=== PATIENT | female | born 1995 | race Caucasian/White ===

== ENCOUNTER 2017-01-31 02:22 | Outpatient (CLI) | payer SELFPAY | END 2017-01-31 02:27 | disposition other institution (70) | LOC: MW.OBCHECK 02:22 | PROVIDERS: ATTEND Obstetrics & Gynecology ==

== ENCOUNTER 2017-01-31 02:28 | Emergency (ER) | payer SELFPAY | END 2017-01-31 02:35 | disposition left against medical advice (07) | LOC: MW.ED 02:28 ==

== ENCOUNTER 2017-03-25 07:45 | Inpatient (IN) | payer SELFPAY ==
[2017-03-25] MEDS ORDERED: Misoprostol 200 MCG Tab PO PRN (08:14)
[2017-03-25] MEDS ORDERED: Nalbuphine 10 MG/1 ML Vial IVPUSH PRN (08:14)
[2017-03-25] MEDS ORDERED: Water For Irrigation,Sterile 1,000 ML Container IRR PRN (08:14)
[2017-03-25] MEDS ORDERED: Carboprost Tromethamine 250 MCG/1 ML Amp IM PRN (08:14)
[2017-03-25] MEDS ORDERED: Methylergonovine 0.2 MG/1 ML Amp IM PRN (08:14)
[2017-03-25] MEDS ORDERED: Sodium Chloride 0.9% 2.5 ML Syringe FLUSH PRN (08:14)
[2017-03-25] MEDS ORDERED: Lidocaine 1% 50 ML MDV INJECT PRN (08:14)
[2017-03-25] MEDS ORDERED: Butorphanol 1 MG/ML SDV IVPUSH PRN (08:14)
[2017-03-25] MEDS ORDERED: Sodium Chloride 0.9% 10 ML Syringe FLUSH PRN (08:14)
[2017-03-25] MEDS ORDERED: Oxytocin/Lactated Ringers 30 UNIT/500 ML BAG IV SCH (08:15)
[2017-03-25] MEDS: Lactated Ringers 1,000 ML IV SCH ×3 (08:19→09:57)
[2017-03-25] MEDS ORDERED: Ampicillin 2 GM in Sodium Chloride 0.9% 100 ML IV ONE (08:38)
[2017-03-25] MEDS ORDERED: fentaNYL 100 MCG/2 ML SDV ONE (08:51)
[2017-03-25] MEDS ORDERED: Ropivacaine HCl/PF 100 ML ONE (08:52)
--- NOTE | 2017-03-25 09:54 | PCM.LDHP ---
L&D History of Present Illness - General Date of Service: 03/25/17 Admit Problem/Dx: Patient Status Order with Admit Dx/Problem 03/25/17 08:14 Patient Status [ADT] Routine Admission Diagnosis/Problem Admission Diagnosis/Problem Source of Information: Patient History Limitations: Reports: No limitations - History of Present Illness Improves with: Reports: None Worsens with: Reports: None Associated Symptoms: Reports: N - Related Data Allergies/Adverse Reactions: Allergies Allergy/AdvReac Type Severity Reaction Status Date / Time tramadol Allergy Rash Verified 03/25/17 07:59 Home Medications: Home Meds Multivitamin [Daily Vitamin] 1 tab PO DAILY 05/31/15 [History] Past Medical History - Past Health History Medical/Surgical History: Denies 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: , Other (see below) Other OB/BYN History: hemmorrhage - Infectious Disease History Infectious Disease History: Reports: Chicken pox - Past Surgical History Female Surgical History: Reports: D&C Social & Family History - Family History Family Medical History: Noncontributory Other Cardiac Family History: cardiovascular disease OBGYN: Reports: - Tobacco Use Smoking Status *Q: Current Some Day Smoker Years of Tobacco use: 10 Packs/Tins Daily: 0.5 Used Tobacco, but Quit: Yes Month Tobacco Last Used: 3 weeks ago Second Hand Smoke Exposure: No - Alcohol Use Days Per Week of Alcohol Use: 0 - Recreational Drug Use Recreational Drug Use: No Recreational Drug Type: Reports: Marijuana/Hashish (Prior to ) H&P Review of Systems - Review of Systems: Review Of Systems: See Below General: Reports: no symptoms HEENT: Reports: no symptoms Pulmonary: Reports: No Symptoms Cardiovascular: Reports: no symptoms Gastrointestinal: Reports: No symptoms Genitourinary: Reports: no symptoms Musculoskeletal: Reports: no symptoms Skin: Reports: no symptoms Psychiatric: Reports: no symptoms Neurological: Reports: No Symptoms Hematologic/Lymphatic: Reports: no symptoms Immunologic: Reports: no symptoms L&D Exam - Exam Exam: See Below - Vital Signs Weight: 78.925 kg - OB Specific Fundal Height in cm: 38 Contraction Intensity: Moderate to Strong movement: active heart tones: present Heart Rate (FHR) Variability: Moderate (6-25 bmp) Presentation: Vertex - Thompson Score Thompson Score Consistency: Soft Thompson Score Effacement: >80% Thompson Score Dilation: > 5 cm - Patient Data Lab Results last 24 hrs: Laboratory Results - last 24 hr 03/25/17 Range/Units 08:30 WBC 12.81 H (4.0-11.0) K/uL RBC 3.25 L (4.30-5.90) M/uL Hgb 10.1 L (12.0-16.0) g/dL Hct 31.3 L (36.0-46.0) % MCV 96.3 (80.0-98.0) fL MCH 31.1 (27.0-32.0) pg MCHC 32.3 (31.0-37.0) g/dL RDW Std Deviation 51.3 (28.0-62.0) fl RDW Coeff of Emily 15 (11.0-15.0) % Plt Count 226 (150-400) K/uL MPV 10.80 (7.40-12.00) fL Nucleated RBC % 0.0 /100WBC Nucleated RBCs # 0 K/uL Result Diagrams: 03/25/17 08:30 Problem List Initiated/Reviewed/Updated: Yes Orders Last 24hrs: Active Orders 24 hr Category Date Time Status Patient Status [ADT] Routine ADT 03/25/17 08:14 Active Heart Tones [RC] CONTINUOUS Care 03/25/17 08:14 Active Non Stress Test [RC] PER UNIT ROUTINE Care 03/25/17 08:14 Active May Shower [RC] ASDIRECTED Care 03/25/17 08:14 Active Notify Provider [RC] PRN Care 03/25/17 08:14 Active Up ad Maria Guadalupe [RC] ASDIRECTED Care 03/25/17 08:14 Active Vaginal Exam [RC] PRN Care 03/25/17 08:14 Active Vital Signs [RC] PER UNIT ROUTINE Care 03/25/17 08:14 Active TYPE AND SCREEN [BBK] Routine Lab 03/25/17 08:30 Received Butorphanol [Stadol] Med 03/25/17 08:14 Active 1 mg IVPUSH Q1H PRN Carboprost Tromethamine [Hemabate DS] Med 03/25/17 08:14 Active 250 mcg IM ASDIRECTED PRN Lactated Ringers [Ringers, Lactated] 1,000 ml Med 03/25/17 08:15 Active IV ASDIRECTED Lidocaine 1% [Xylocaine 1%] Med 03/25/17 08:14 Active 50 ml INJECT .ONCE PRN Methylergonovine [Methergine] Med 03/25/17 08:14 Active 0.2 mg IM ASDIRECTED PRN Misoprostol [Cytotec] Med 03/25/17 08:14 Active 200 mcg PO .ONCE PRN Nalbuphine [Nubain] Med 03/25/17 08:14 Active 10 mg IVPUSH Q1H PRN Oxytocin/Lactated Ringers [Pitocin in LR 30 Units/500 Med 03/25/17 08:15 Active ML] 30 unit in 500 ml IV TITRATE Sodium Chloride 0.9% [Saline Flush] Med 03/25/17 08:14 Active 10 ml FLUSH ASDIRECTED PRN Sodium Chloride 0.9% [Saline Flush] Med 03/25/17 08:14 Active 2.5 ml FLUSH ASDIRECTED PRN Water For Irrigation,Sterile [Sterile Water for Med 03/25/17 08:14 Active Irrigation] 1,000 ml IRR ASDIRECTED PRN Scalp Electrode [WOMSER] Per Unit Routine Oth 03/25/17 08:14 Ordered Peripheral IV Insertion Adult [OM.PC] Routine Oth 03/25/17 08:14 Ordered Resuscitation Status Routine Resus Stat 03/25/17 08:14 Ordered Medication Orders Butorphanol Tartrate (Stadol) 1 mg IVPUSH Q1H PRN PRN Reason: Pain Carboprost Tromethamine (Hemabate Ds) 250 mcg IM ASDIRECTED PRN PRN Reason: Post Hemorrhage Lactated Ringer's (Ringers, Lactated) 1,000 mls @ 150 mls/hr IV ASDIRECTED [place] Last Admin: 03/25/17 08:19 Dose: 999 mls/hr Oxytocin/Lactated Ringer's (Pitocin In Lr 30 Units/500 Ml) 30 unit in 500 mls @ 2 mls/hr IV TITRATE [place]; 2 MUNITS/MIN PRN Reason: Protocol Stop: 03/26/17 08:14 Lidocaine HCl (Xylocaine 1%) 50 ml INJECT .ONCE PRN PRN Reason: Laceration repair Methylergonovine Maleate (Methergine) 0.2 mg IM ASDIRECTED PRN PRN Reason: Post Hemorrhage Misoprostol (Cytotec) 200 mcg PO .ONCE PRN PRN Reason: Post Hemorrhage Nalbuphine HCl (Nubain) 10 mg IVPUSH Q1H PRN PRN Reason: Pain (severe 7-10) Stop: 03/25/17 10:15 Sodium Chloride (Saline Flush) 10 ml FLUSH ASDIRECTED PRN PRN Reason: Keep Vein Open Sodium Chloride (Saline Flush) 2.5 ml FLUSH ASDIRECTED PRN PRN Reason: Keep Vein Open Sterile Water (Sterile Water For Irrigation) 1,000 ml IRR ASDIRECTED PRN PRN Reason: delivery Assessment/Plan Comment:: This is a 21 years old patient she is part of 2001 she status post normal spontaneous vaginal delivery. She recently moved back to our area from [facility] the patient did claim that she have care there we are trying to obtain her record. The patient stated that her EDC is March 28, 2017 she is currently in active labor cervical dilatation to 5 cm 9 the vertex at -2 with intact membranes the heart rate category one. Plan to admit the patient to the hospital since we don't have a GBS status we will start her on antibiotic as per protocol I am anticipating vaginal the patient can have epidural when she needed it.
--- NOTE | 2017-03-25 12:08 | PCM.PREANE ---
Preanesthetic Assessment - Anesthesia/Transfusion/Family Hx Anesthesia History: No Prior Anesthesia Family History of Anesthesia Reaction: No Transfusion History: Prior Transfusion Without Reaction - Review of Systems General: No Symptoms Pulmonary: No Symptoms Cardiovascular: No Symptoms Gastrointestinal: No symptoms, Nausea Other: Reports: None - Physical Assessment Height: 1.57 m Weight: 78.925 kg ASA Class: 2 Mental Status: Alert & Oriented x3 Airway Class: Mallampati = 2 Dentition: Reports: Normal Dentition Thyro-Mental Finger Breadths: 3 Mouth Opening Finger Breadths: 3 ROM/Head Extension: Full Lungs: Clear to auscultation, Normal respiratory effort Cardiovascular: Regular Rate, Regular Rhythm - Lab Values: Laboratory Last Values WBC 12.81 K/uL (4.0-11.0) H 03/25/17 08:30 RBC 3.25 M/uL (4.30-5.90) L 03/25/17 08:30 Hgb 10.1 g/dL (12.0-16.0) L 03/25/17 08:30 Hct 31.3 % (36.0-46.0) L 03/25/17 08:30 MCV 96.3 fL (80.0-98.0) 03/25/17 08:30 MCH 31.1 pg (27.0-32.0) 03/25/17 08:30 MCHC 32.3 g/dL (31.0-37.0) 03/25/17 08:30 RDW Std Deviation 51.3 fl (28.0-62.0) 03/25/17 08:30 RDW Coeff of Emily 15 % (11.0-15.0) 03/25/17 08:30 Plt Count 226 K/uL (150-400) 03/25/17 08:30 MPV 10.80 fL (7.40-12.00) 03/25/17 08:30 Nucleated RBC % 0.0 /100WBC 03/25/17 08:30 Nucleated RBCs # 0 K/uL 03/25/17 08:30 Urine Color YELLOW 03/25/17 10:04 Urine Appearance CLEAR 03/25/17 10:04 Urine pH 6.0 (5.0-8.0) 03/25/17 10:04 Ur Specific Elmo 1.025 (1.001-1.035) 03/25/17 10:04 Urine Protein TRACE mg/dL (NEGATIVE) 03/25/17 10:04 Urine Glucose (UA) NEGATIVE mg/dL (NEGATIVE) 03/25/17 10:04 Urine Ketones NEGATIVE mg/dL (NEGATIVE) 03/25/17 10:04 Urine Occult Blood LARGE (NEGATIVE) H 03/25/17 10:04 Urine Nitrite NEGATIVE (NEGATIVE) 03/25/17 10:04 Urine Bilirubin NEGATIVE (NEGATIVE) 03/25/17 10:04 Urine Urobilinogen 0.2 EU/dL (<2.0) 03/25/17 10:04 Ur Leukocyte Esterase NEGATIVE (NEGATIVE) 03/25/17 10:04 Urine Opiates Screen NEGATIVE (NEGATIVE) 03/25/17 10:04 Ur Oxycodone Screen NEGATIVE (NEGATIVE) 03/25/17 10:04 Urine Methadone Screen NEGATIVE (NEGATIVE) 03/25/17 10:04 Ur Barbiturates Screen NEGATIVE (NEGATIVE) 03/25/17 10:04 Ur Phencyclidine Scrn NEGATIVE (NEGATIVE) 03/25/17 10:04 Ur Amphetamine Screen NEGATIVE (NEGATIVE) 03/25/17 10:04 U Methamphetamines Scrn NEGATIVE (NEGATIVE) 03/25/17 10:04 U Benzodiazepines Scrn NEGATIVE (NEGATIVE) 03/25/17 10:04 U Cocaine Metab Screen NEGATIVE (NEGATIVE) 03/25/17 10:04 U Marijuana (THC) Screen NEGATIVE (NEGATIVE) 03/25/17 10:04 Blood Type O POSITIVE 03/25/17 08:30 Antibody Screen NEGATIVE 03/25/17 08:30 - Allergies Allergies/Adverse Reactions: Allergies Allergy/AdvReac Type Severity Reaction Status Date / Time tramadol Allergy Rash Verified 03/25/17 07:59 - Blood Blood Available: No - Anesthesia Plan Pre-Op Medication Ordered: None - Acknowledgements Anesthesia Type Planned: MAC Pt an Appropriate Candidate for the Planned Anesthesia: Yes Alternatives and Risks of Anesthesia Discussed w Pt/Guardian: Yes Pt/Guardian Understands and Agrees with Anesthesia Plan: Yes PreAnesthesia Questionnaire - Past Health History Medical/Surgical History: Denies 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: , Other (see below) Other OB/BYN History: hemmorrhage Endocrine/Metabolic History: Reports: Obesity/BMI 30+ - Infectious Disease History Infectious Disease History: Reports: Chicken pox - Past Surgical History Female Surgical History: Reports: D&C - SUBSTANCE USE Smoking Status *Q: Current Some Day Smoker Tobacco Use Within Last Twelve Months: No Second Hand Smoke Exposure: No Days Per Week of Alcohol Use: 0 Recreational Drug Use History: No Recreational Drug Type: Reports: Marijuana/Hashish (Prior to ) - HOME MEDS Home Medications: Home Meds Multivitamin [Daily Vitamin] 1 tab PO DAILY 05/31/15 [History] - CURRENT (IN HOUSE) MEDS Current Meds: Current Medications Butorphanol Tartrate (Stadol) 1 mg IVPUSH Q1H PRN PRN Reason: Pain Carboprost Tromethamine (Hemabate Ds) 250 mcg IM ASDIRECTED PRN PRN Reason: Post Hemorrhage Lactated Ringer's (Ringers, Lactated) 1,000 mls @ 150 mls/hr IV ASDIRECTED [place] Last Admin: 03/25/17 09:57 Dose: 150 mls/hr Oxytocin/Lactated Ringer's (Pitocin In Lr 30 Units/500 Ml) 30 unit in 500 mls @ 2 mls/hr IV TITRATE [place]; 2 MUNITS/MIN PRN Reason: Protocol Stop: 03/26/17 08:14 Ampicillin Sodium 1 gm/ Sodium (Chloride) 50 mls @ 100 mls/hr IV Q4H [place] Lidocaine HCl (Xylocaine 1%) 50 ml INJECT .ONCE PRN PRN Reason: Laceration repair Methylergonovine Maleate (Methergine) 0.2 mg IM ASDIRECTED PRN PRN Reason: Post Hemorrhage Misoprostol (Cytotec) 200 mcg PO .ONCE PRN PRN Reason: Post Hemorrhage Sodium Chloride (Saline Flush) 10 ml FLUSH ASDIRECTED PRN PRN Reason: Keep Vein Open Sodium Chloride (Saline Flush) 2.5 ml FLUSH ASDIRECTED PRN PRN Reason: Keep Vein Open Sterile Water (Sterile Water For Irrigation) 1,000 ml IRR ASDIRECTED PRN PRN Reason: delivery Discontinued Medications Fentanyl (Sublimaze) Confirm Administered Dose 200 mcg .ROUTE .STK-MED ONE Stop: 03/25/17 08:52 Last Admin: 03/25/17 11:28 Dose: Not Given Ampicillin Sodium 2 gm/ Sodium (Chloride) 100 mls @ 200 mls/hr IV ONETIME ONE Stop: 03/25/17 09:07 Last Admin: 03/25/17 09:12 Dose: 200 mls/hr Ropivacaine (Naropin 0.2%) Confirm Administered Dose 100 mls @ as directed .ROUTE .STK-MED ONE Stop: 03/25/17 08:53 Last Admin: 03/25/17 11:29 Dose: Not Given Nalbuphine HCl (Nubain) 10 mg IVPUSH Q1H PRN PRN Reason: Pain (severe 7-10) Stop: 03/25/17 10:15
[2017-03-25] MEDS: Ampicillin 1 GM in Sodium Chloride 0.9% 50 ML IV SCH ×2 (13:06→19:21)
[2017-03-25] MEDS ORDERED: Ibuprofen 800 MG Tab PO PRN (16:15)
[2017-03-25] MEDS ORDERED: Lanolin 100% Cream 7 GM Tube TOP PRN (16:15)
[2017-03-25] MEDS ORDERED: Docusate Sodium 100 MG Cap PO PRN (16:15)
[2017-03-25] MEDS ORDERED: Ibuprofen 400 MG Tab PO PRN (16:15)
[2017-03-25] MEDS ORDERED: Acetaminophen 500 MG Tab PO PRN (16:15)
[2017-03-25] MEDS ORDERED: Witch Hazel Medicated Pads 40/Jar TOP PRN (16:15)
[2017-03-25] MEDS ORDERED: Benzocaine/Menthol 20%-0.5% Spray 78 GM Cannister TOP PRN (16:15)
[2017-03-25] MEDS ORDERED: Bisacodyl 10 MG Supp RECTAL PRN (16:15)
[2017-03-25] MEDS: Acetaminophen 500 MG Tab PO PRN (17:34)
[2017-03-25] MEDS: oxyCODONE 5 MG Tab PO PRN ×3 (17:34→22:33)
--- NOTE | 2017-03-25 19:38 | PCM48HPAN ---
Post Anesthesia Note - EVALUATION WITHIN 48HRS OF ANESTHETIC Vital Signs in Normal Range: Yes Patient Participated in Evaluation: Yes Respiratory Function Stable: Yes Airway Patent: Yes Cardiovascular Function Stable: Yes Hydration Status Stable: Yes Pain Control Satisfactory: Yes Nausea and Vomiting Control Satisfactory: Yes Mental Status Recovered: Yes
[2017-03-26] MEDS: Ampicillin 1 GM in Sodium Chloride 0.9% 50 ML IV SCH ×2 (00:01→04:05)
[2017-03-26] MEDS: Acetaminophen 500 MG Tab PO PRN (01:08)
[2017-03-26] MEDS: oxyCODONE 5 MG Tab PO PRN ×2 (07:45→16:19)
--- NOTE | 2017-03-26 13:13 | PCM.PNPP ---
- General Info Date of Service: 03/26/17 Functional Status: Reports: pain controlled - Review of Systems General: Reports: No Symptoms HEENT: Reports: no symptoms Pulmonary: Reports: no symptoms Cardiovascular: Reports: No Symptoms Gastrointestinal: Reports: No symptoms Genitourinary: Reports: no symptoms Musculoskeletal: Reports: no symptoms Skin: Reports: no symptoms Neurological: Reports: No Symptoms Psychiatric: Reports: no symptoms - General Info Date of Service: 03/26/17 - Patient Data Vital Signs - most recent: Last Vital Signs Temp 37.0 C 03/26/17 07:45 Pulse 84 03/26/17 07:45 Resp 16 03/26/17 07:45 BP 107/57 L 03/26/17 07:45 Pulse Ox 98 03/26/17 07:45 Weight - most recent: 78.925 kg Lab Results - last 24 hrs: Laboratory Results - last 24 hr 03/26/17 Range/Units 05:17 Hgb 7.5 L (12.0-16.0) g/dL Hct 22.7 L (36.0-46.0) % Med Orders - Current: Current Medications Acetaminophen (Tylenol Extra Strength) 500 mg PO Q4H PRN PRN Reason: Pain Acetaminophen (Tylenol Extra Strength) 1,000 mg PO Q4H PRN PRN Reason: Pain Last Admin: 03/26/17 01:08 Dose: 1,000 mg Benzocaine/Menthol (Dermoplast Pain Relief 20%-0.5% [place]) 78 gm TOP ASDIRECTED PRN PRN Reason: Perineal Comfort Measure Last Admin: 03/25/17 18:56 Dose: 1 can Bisacodyl (Dulcolax) 10 mg RECTAL .ONCE PRN PRN Reason: Constipation Butorphanol Tartrate (Stadol) 1 mg IVPUSH Q1H PRN PRN Reason: Pain Carboprost Tromethamine (Hemabate Ds) 250 mcg IM ASDIRECTED PRN PRN Reason: Post Hemorrhage Docusate Sodium (Colace) 100 mg PO BID PRN PRN Reason: Constipation Emollient Ointment (Lansinoh Hpa) 0 gm TOP ASDIRECTED PRN PRN Reason: Sore Nipples Lactated Ringer's (Ringers, Lactated) 1,000 mls @ 150 mls/hr IV ASDIRECTED [place] Last Admin: 03/25/17 09:57 Dose: 150 mls/hr Ampicillin Sodium 1 gm/ Sodium (Chloride) 50 mls @ 100 mls/hr IV Q4H [place] Last Admin: 03/26/17 04:05 Dose: Not Given Ibuprofen (Motrin) 400 mg PO Q4H PRN PRN Reason: Pain Ibuprofen (Motrin) 800 mg PO Q6H PRN PRN Reason: Pain Last Admin: 03/26/17 04:01 Dose: 800 mg Lidocaine HCl (Xylocaine 1%) 50 ml INJECT .ONCE PRN PRN Reason: Laceration repair Methylergonovine Maleate (Methergine) 0.2 mg IM ASDIRECTED PRN PRN Reason: Post Hemorrhage Last Admin: 03/25/17 17:03 Dose: 0.2 mg Misoprostol (Cytotec) 200 mcg PO .ONCE PRN PRN Reason: Post Hemorrhage Oxycodone HCl (Oxycodone) 5 mg PO Q2H PRN PRN Reason: Pain Last Admin: 03/26/17 07:45 Dose: 5 mg Sodium Chloride (Saline Flush) 10 ml FLUSH ASDIRECTED PRN PRN Reason: Keep Vein Open Sodium Chloride (Saline Flush) 2.5 ml FLUSH ASDIRECTED PRN PRN Reason: Keep Vein Open Sterile Water (Sterile Water For Irrigation) 1,000 ml IRR ASDIRECTED PRN PRN Reason: delivery Witch Gina (Tucks) 1 pad TOP ASDIRECTED PRN PRN Reason: comfort care Discontinued Medications Fentanyl (Sublimaze) Confirm Administered Dose 200 mcg .ROUTE .STK-MED ONE Stop: 03/25/17 08:52 Last Admin: 03/25/17 11:28 Dose: Not Given Oxytocin/Lactated Ringer's (Pitocin In Lr 30 Units/500 Ml) 30 unit in 500 mls @ 2 mls/hr IV TITRATE [place]; 2 MUNITS/MIN PRN Reason: Protocol Stop: 03/26/17 08:14 Last Admin: 03/25/17 16:10 Dose: 2 munits/min, 999 mls/hr Ampicillin Sodium 2 gm/ Sodium (Chloride) 100 mls @ 200 mls/hr IV ONETIME ONE Stop: 03/25/17 09:07 Last Admin: 03/25/17 09:12 Dose: 200 mls/hr Ropivacaine (Naropin 0.2%) Confirm Administered Dose 100 mls @ as directed .ROUTE .STK-MED ONE Stop: 03/25/17 08:53 Last Admin: 03/25/17 11:29 Dose: Not Given Nalbuphine HCl (Nubain) 10 mg IVPUSH Q1H PRN PRN Reason: Pain (severe 7-10) Stop: 03/25/17 10:15 - Infant Interaction Interaction: Holding Infant Feeding: Attempted ; Nursed Fair/Poor Support Person: Significant Other - Recovery Exam Fundal Tone: Firm Fundal Level: 2 Fingerbreadths Below Umbilicus Fundal Placement: Midline Lochia Amount: Scant Lochia Color: Rubra/Red Perineum Description: Intact, Minimal Bruising/Swelling Episiotomy/Laceration: None Bladder Status: Nonpalpable Urinary Elimination: Voided - Exam General: alert, oriented HEENT: Pupils equal Neck: supple Lungs: Clear to auscultation, Normal respiratory effort Cardiovascular: Regular Rate, Regular Rhythm Abdomen: bowel sounds present, soft, no tenderness, no distension Extremities: no edema Skin: warm, dry, intact Wound/Incisions: healing well Neurological: no new focal deficit Psy/Mental Status: alert, normal affect, normal mood - Problem List Review Problem List Initiated/Reviewed/Updated: Yes - My Orders Last 24 Hours: My Active Orders 03/25/17 13:00 Ampicillin 1 gm Sodium Chloride 0.9% [Normal Saline] 50 ml IV Q4H 03/25/17 16:15 Patient Status [ADT] Routine Acetaminophen [Tylenol Extra Strength] 1,000 mg PO Q4H PRN Acetaminophen [Tylenol Extra Strength] 500 mg PO Q4H PRN Benzocaine/Menthol [Dermoplast Pain Relief 20%-0.5% [place]] 78 gm TOP ASDIRECTED PRN Bisacodyl [Dulcolax] 10 mg RECTAL .ONCE PRN Docusate Sodium [Colace] 100 mg PO BID PRN Ibuprofen [Motrin] 400 mg PO Q4H PRN Ibuprofen [Motrin] 800 mg PO Q6H PRN Lanolin [Lansinoh HPA] See Dose Instructions TOP ASDIRECTED PRN Witch Gina [Tucks] 1 pad TOP ASDIRECTED PRN oxyCODONE 5 mg PO Q2H PRN Assess Lochia [WOMSER] Per Unit Routine Assess Uterine Involution [WOMSER] Per Unit Routine Peripheral IV Discontinue [OM.PC] Routine 03/25/17 Dinner Regular Diet [DIET] - Plan Plan:: This is a 21 years old patient she is part of 2002 she status post normal spontaneous vaginal delivery. She recently moved back to our area from [facility] the patient did claim that she have care there we are trying to obtain her record. The patient stated that her EDC is March 28, 2017 she is currently in active labor cervical dilatation to 5 cm 9 the vertex at -2 with intact membranes the heart rate category one. Plan to admit the patient to the hospital since we don't have a GBS status we will start her on antibiotic as per protocol I am anticipating vaginal the patient can have epidural when she needed it.
--- NOTE | 2017-03-26 13:15 | PCM.DCSUM1 ---
Discharge Summary - Discharge Data Discharge Date: 03/26/17 Discharge Disposition: Home, Self-Care 01 Condition: Good - Patient Instructions Diet: Usual Diet as Tolerated Driving: Do Not Drive Showering/Bathing: May Shower Notify Provider of: Fever, Increased Pain, Swelling and Redness, Nausea and/or Vomiting - Discharge Plan Home Medications: Home Meds Multivitamin [Daily Vitamin] 1 tab PO DAILY 05/31/15 [History] Referrals: [facility] [Outside] Renaldo Mckeon MD [Physician] - 04/28/17 10:45 am - General Info Date of Service: 03/26/17 Functional Status: Reports: pain controlled - Review of Systems General: Reports: No Symptoms HEENT: Reports: no symptoms Pulmonary: Reports: no symptoms Cardiovascular: Reports: No Symptoms Gastrointestinal: Reports: No symptoms Genitourinary: Reports: no symptoms Musculoskeletal: Reports: no symptoms Skin: Reports: no symptoms Neurological: Reports: No Symptoms Psychiatric: Reports: no symptoms - Patient Data Vitals - Most Recent: Last Vital Signs Temp 37.0 C 03/26/17 07:45 Pulse 84 03/26/17 07:45 Resp 16 03/26/17 07:45 BP 107/57 L 03/26/17 07:45 Pulse Ox 98 03/26/17 07:45 Weight - Most Recent: 78.925 kg Lab Results - Last 24 hrs: Laboratory Results - last 24 hr 03/26/17 Range/Units 05:17 Hgb 7.5 L (12.0-16.0) g/dL Hct 22.7 L (36.0-46.0) % Med Orders - Current: Current Medications Acetaminophen (Tylenol Extra Strength) 500 mg PO Q4H PRN PRN Reason: Pain Acetaminophen (Tylenol Extra Strength) 1,000 mg PO Q4H PRN PRN Reason: Pain Last Admin: 03/26/17 01:08 Dose: 1,000 mg Benzocaine/Menthol (Dermoplast Pain Relief 20%-0.5% [place]) 78 gm TOP ASDIRECTED PRN PRN Reason: Perineal Comfort Measure Last Admin: 03/25/17 18:56 Dose: 1 can Bisacodyl (Dulcolax) 10 mg RECTAL .ONCE PRN PRN Reason: Constipation Butorphanol Tartrate (Stadol) 1 mg IVPUSH Q1H PRN PRN Reason: Pain Carboprost Tromethamine (Hemabate Ds) 250 mcg IM ASDIRECTED PRN PRN Reason: Post Hemorrhage Docusate Sodium (Colace) 100 mg PO BID PRN PRN Reason: Constipation Emollient Ointment (Lansinoh Hpa) 0 gm TOP ASDIRECTED PRN PRN Reason: Sore Nipples Lactated Ringer's (Ringers, Lactated) 1,000 mls @ 150 mls/hr IV ASDIRECTED [place] Last Admin: 03/25/17 09:57 Dose: 150 mls/hr Ampicillin Sodium 1 gm/ Sodium (Chloride) 50 mls @ 100 mls/hr IV Q4H [facility] Last Admin: 03/26/17 04:05 Dose: Not Given Ibuprofen (Motrin) 400 mg PO Q4H PRN PRN Reason: Pain Ibuprofen (Motrin) 800 mg PO Q6H PRN PRN Reason: Pain Last Admin: 03/26/17 04:01 Dose: 800 mg Lidocaine HCl (Xylocaine 1%) 50 ml INJECT .ONCE PRN PRN Reason: Laceration repair Methylergonovine Maleate (Methergine) 0.2 mg IM ASDIRECTED PRN PRN Reason: Post Hemorrhage Last Admin: 03/25/17 17:03 Dose: 0.2 mg Misoprostol (Cytotec) 200 mcg PO .ONCE PRN PRN Reason: Post Hemorrhage Oxycodone HCl (Oxycodone) 5 mg PO Q2H PRN PRN Reason: Pain Last Admin: 03/26/17 07:45 Dose: 5 mg Sodium Chloride (Saline Flush) 10 ml FLUSH ASDIRECTED PRN PRN Reason: Keep Vein Open Sodium Chloride (Saline Flush) 2.5 ml FLUSH ASDIRECTED PRN PRN Reason: Keep Vein Open Sterile Water (Sterile Water For Irrigation) 1,000 ml IRR ASDIRECTED PRN PRN Reason: delivery Witch Gina (Tucks) 1 pad TOP ASDIRECTED PRN PRN Reason: comfort care Discontinued Medications Fentanyl (Sublimaze) Confirm Administered Dose 200 mcg .ROUTE .STK-MED ONE Stop: 03/25/17 08:52 Last Admin: 03/25/17 11:28 Dose: Not Given Oxytocin/Lactated Ringer's (Pitocin In Lr 30 Units/500 Ml) 30 unit in 500 mls @ 2 mls/hr IV TITRATE [place]; 2 MUNITS/MIN PRN Reason: Protocol Stop: 03/26/17 08:14 Last Admin: 03/25/17 16:10 Dose: 2 munits/min, 999 mls/hr Ampicillin Sodium 2 gm/ Sodium (Chloride) 100 mls @ 200 mls/hr IV ONETIME ONE Stop: 03/25/17 09:07 Last Admin: 03/25/17 09:12 Dose: 200 mls/hr Ropivacaine (Naropin 0.2%) Confirm Administered Dose 100 mls @ as directed .ROUTE .STK-MED ONE Stop: 03/25/17 08:53 Last Admin: 03/25/17 11:29 Dose: Not Given Nalbuphine HCl (Nubain) 10 mg IVPUSH Q1H PRN PRN Reason: Pain (severe 7-10) Stop: 03/25/17 10:15 - Exam General: Reports: alert, oriented HEENT: Reports: Pupils equal, Pupils reactive, EOMI, Mucous membr. moist/pink Neck: Reports: supple Lungs: Reports: Clear to auscultation, Normal respiratory effort Cardiovascular: Reports: Regular Rate, Regular Rhythm Abdomen: Reports: bowel sounds present, soft, no tenderness, no distension (Female) Exam: Normal external exam, Normal speculum exam, Normal bimanual exam Rectal (Female) Exam: Normal Exam, Normal rectal tone Back Exam: Reports: normal inspection, full range of motion Extremities: Reports: no edema, normal pulses Skin: Reports: warm, dry, intact Wound/Incisions: Reports: healing well Neurological: Reports: no new focal deficit Psy/Mental Status: Reports: alert, normal affect, normal mood *Q Meaningful Use (DIS) - VTE *Q VTE Criteria *Q: - Stroke *Q Stroke Criteria *Q: - AMI *Q AMI Criteria *Q:
[2017-03-26 16:59] VITALS: BP 116/67
--- NOTE | 2017-03-27 10:44 | OR ---
SURGEON: Renaldo Mckeon MD DATE OF PROCEDURE: Joyce is a 21-year-old patient. She is para 2-0-0-2. She had no care in our area in this . She claimed that she had care at [place], [place] and according to her, she is due on March 28, 2017. There is no record available at this time. Her GBS status is unknown. The patient is admitted in active labor. At the time of admission, she was 5 cm complete, vertex, and -1 station with bulging bag of water. heart rate was within normal limits and category one. The patient was started on antibiotics because of her GBS status, and then she had epidural anesthesia for labor analgesia and she progressed. At noon, she was 8 cm, complete, 0 station with bulging bag of water. She had an artificial rupture of the membrane by me. The patient continued to progress without any problem. She was able to accomplish normal spontaneous vaginal delivery of a female fetus. The score was 6 and 9 at 1 and 5 and the weight 8-13. The placenta delivered spontaneous, complete, and intact without any problem. There was no perineal laceration. There was no labial laceration. Estimated blood loss 250 to 300 mL. In the entire process of labor, heart rate was category 1. There was no complication. BIANKA / MARIA INES /[id number]
== END 2017-03-26 18:58 | disposition home or self-care (01) | DRG 775 ==
LOC: MW.OB 07:45 → MW.OBCHECK 07:45 → MW.OB 08:14 → OBSVTOIN 16:07 → MW.OB 19:26
PROVIDERS: ADMIT Obstetrics & Gynecology; ATTEND Obstetrics & Gynecology
PROC: 10E0XZZ Delivery of Products of Conception, External Approach (ICD-10-PCS; principal; 2017-03-25)
PROC: 10907ZC Drainage of Amniotic Fluid, Therapeutic from Products of Conception, Via Natural or Artificial Opening (ICD-10-PCS; 2017-03-25)
DX: O80 Encounter for full-term uncomplicated delivery (principal); Z3A.40 40 weeks gestation of pregnancy; Z37.0 Single live birth
CPT/HCPCS: 01967; 36415; 59025; 80305; 81003; 85014; 85018; 85027; 86850; 86900; 86901; A9270-GY; J0290; J2210; J2795; J3010; J7030; J7050; J7120

== ENCOUNTER 2017-10-15 19:05 | Emergency (ER) | payer SELFPAY ==
--- NOTE | 2017-10-15 19:45 | EDM.PDOC ---
ED HPI GENERAL MEDICAL PROBLEM - General Chief Complaint: General Stated Complaint: CHEST PAIN Time Seen by Provider: 10/15/17 19:44 Source of Information: Reports: Patient - History of Present Illness INITIAL COMMENTS - FREE TEXT/NARRATIVE: HISTORY AND PHYSICAL: History of present illness: [Patient presents with complaint of epigastric pain over the last year she relates to a prominent xiphoid process which she states became more prominent after her last childbirth one year prior with palpation of the xiphoid it does not elicit any tenderness on exam. She is somewhat tender in the epigastrium she does not relate any food association with the discomfort currently at 2 out of 10 but has been up to 8 out of 10 over the last week. No fever nausea vomiting diarrhea constipation chest pain shortness breath headache dizziness or palpitation no bowel or urine symptoms ] Review of systems: As per history of present illness and below otherwise all systems reviewed and negative. Past medical history: As per history of present illness and as reviewed below otherwise noncontributory. Surgical history: As per history of present illness and as reviewed below otherwise noncontributory. Social history: No reported history of drug or alcohol abuse. Family history: As per history of present illness and as reviewed below otherwise noncontributory. Physical exam: HEENT: Atraumatic, normocephalic, pupils reactive, negative for conjunctival pallor or scleral icterus, mucous membranes moist, throat clear, neck supple, nontender, trachea midline. Lungs: Clear to auscultation, breath sounds equal bilaterally, chest nontender. Heart: S1S2, regular, negative for clicks, rubs, or JVD. Abdomen: Soft, nondistended, nontender. Negative for masses or hepatosplenomegaly. Negative for costovertebral tenderness. Pelvis: Stable nontender. Genitourinary: Deferred. Rectal: Deferred. Extremities: Atraumatic, negative for cords or calf pain. Neurovascular unremarkable. Neuro: Awake, alert, oriented. Cranial nerves II through XII unremarkable. Cerebellum unremarkable. Motor and sensory unremarkable throughout. Exam nonfocal. Diagnostics: []CBC CMP UA CG lipase--- patient refused serum lab Therapeutics: [employer] Impression: []epiGastric discomfort Prominent xiphoid process Definitive disposition and diagnosis as appropriate pending reevaluation and review of above. 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: , 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) Other OB/BYN History: hemmorrhage Musculoskeletal History: Reports: None Neurological History: Reports: None Psychiatric History: Reports: Anxiety Endocrine/Metabolic History: Reports: Obesity/BMI 30+ Hematologic History: Reports: None Immunologic History: Reports: None Oncologic (Cancer) History: Reports: None Dermatologic History: Reports: None - Infectious Disease History Infectious Disease History: Reports: None - Past Surgical History Head Surgeries/Procedures: Reports: None Female Surgical History: Reports: D&C Social & Family History - Family History Family Medical History: Noncontributory Other Cardiac Family History: cardiovascular disease OBGYN: Reports: - Tobacco Use Smoking Status *Q: Current Every Day Smoker Years of Tobacco use: 5 Packs/Tins Daily: 0.5 Used Tobacco, but Quit: Yes Month Tobacco Last Used: 3 weeks ago Second Hand Smoke Exposure: No - Caffeine Use Caffeine Use: Reports: None - Alcohol Use Days Per Week of Alcohol Use: 0 - Recreational Drug Use Recreational Drug Use: No Recreational Drug Type: Reports: Marijuana/Hashish (Prior to ) ED ROS GENERAL - Review of Systems Review Of Systems: ROS reveals no pertinent complaints other than HPI. ED EXAM, GENERAL - Physical Exam Exam: See Below Course - Vital Signs Last Recorded V/S: Last Vital Signs Temp 97.6 F 10/15/17 19:25 Pulse 95 10/15/17 19:25 Resp 18 10/15/17 19:25 BP 135/78 10/15/17 19:25 Pulse Ox 100 10/15/17 19:25 - Orders/Labs/Meds Orders: Active Orders 24 hr Category Date Time Status CBC WITH AUTO DIFF [HEME] Stat Lab 10/15/17 19:43 Ordered COMPREHENSIVE METABOLIC PN,CMP [CHEM] Stat Lab 10/15/17 19:43 Ordered HCG QUALITATIVE,URINE [URCHEM] Stat Lab 10/15/17 20:00 Received LIPASE [CHEM] Stat Lab 10/15/17 19:43 Ordered UA W/MICROSCOPIC [URIN] Stat Lab 10/15/17 20:00 Received Departure - Departure Time of Disposition: 20:15 Disposition: Home, Self-Care 01 Condition: Good Clinical Impression: Epigastric pain - Discharge Information Referrals: PCP,None [Primary Care Provider] - Forms: ED Department Discharge Additional Instructions: Medication as prescribed Return if symptoms persist or worsen Follow-up with primary care in 2 weeks The following information is given to patients seen in the emergency department who are being discharged to home. This information is to outline your options for follow-up care. We provide all patients seen in our emergency department with a follow-up referral. The need for follow-up, as well as the timing and circumstances, are variable depending upon the specifics of your emergency department visit. If you don't have a primary care physician on staff, we will provide you with a referral. We always advise you to contact your personal physician following an emergency department visit to inform them of the circumstance of the visit and for follow-up with them and/or the need for any referrals to a consulting specialist. The emergency department will also refer you to a specialist when appropriate. This referral assures that you have the opportunity for follow-up care with a specialist. All of these measure are taken in an effort to provide you with optimal care, which includes your follow-up. Under all circumstances we always encourage you to contact your private physician who remains a resource for coordinating your care. When calling for follow-up care, please make the office aware that this follow-up is from your recent emergency room visit. If for any reason you are refused follow-up, please contact the [facility] emergency department at and asked to speak to the emergency department charge nurse. - My Orders Last 24 Hours: My Active Orders 10/15/17 19:43 CBC WITH AUTO DIFF [HEME] Stat COMPREHENSIVE METABOLIC PN,CMP [CHEM] Stat LIPASE [CHEM] Stat 10/15/17 20:00 HCG QUALITATIVE,URINE [URCHEM] Stat UA W/MICROSCOPIC [URIN] Stat - Assessment/Plan Last 24 Hours: My Active Orders 10/15/17 19:43 CBC WITH AUTO DIFF [HEME] Stat COMPREHENSIVE METABOLIC PN,CMP [CHEM] Stat LIPASE [CHEM] Stat 10/15/17 20:00 HCG QUALITATIVE,URINE [URCHEM] Stat UA W/MICROSCOPIC [URIN] Stat
[2017-10-15 20:44] VITALS: BP 132/71
== END 2017-10-15 20:44 | disposition home or self-care (01) ==
LOC: MW.ED 19:05
DX: R10.13 Epigastric pain (principal); F17.210 Nicotine dependence, cigarettes, uncomplicated; Z88.5 Allergy status to narcotic agent
CPT/HCPCS: 81001; 81025; 87086; 99283; 99284

== ENCOUNTER 2017-10-17 16:54 | Emergency (ER) | payer SELFPAY ==
--- NOTE | 2017-10-17 18:40 | EDM.PDOC ---
ED HPI GENERAL MEDICAL PROBLEM - General Chief Complaint: Abdominal Pain Stated Complaint: PAIN IN RIBS UNDER BREAST Time Seen by Provider: 10/17/17 18:40 Source of Information: Reports: Patient History Limitations: Reports: No Limitations - History of Present Illness INITIAL COMMENTS - FREE TEXT/NARRATIVE: HISTORY AND PHYSICAL: []22-year-old female presenting with rib pain that is worse on the left side than the right History of Present Illness: Patient just found out that she is , was in the emergency room 2 days ago and was seen by Dr. Dallas. Patient was diagnosed with UTI started on antibiotic therapy She states she has not improved pain and wanted x-rays on her ribs. She is in the middle of moving. Then asks about clinics. Review of Systems: As per history of present illness and below otherwise all systems reviewed and negative. Past medical history: As per history of present illness and as reviewed below otherwise noncontributory. Surgical history: As per history of present illness and as reviewed below otherwise noncontributory. Social history: No reported history of drug or alcohol abuse. Family history: As per history of present illness and as reviewed below otherwise noncontributory. Physical exam: Alert and oriented female PERRLA she does have good eye contact in full sentences without any shortness of breath HEENT: Atraumatic, normocehpalic, pupils reactive, negative for conjunctival pallor or scleral icterus, mucous membranes moist, throat clear, neck supple, nontender, trachea midline. Tonsils enlarged mild cervical adenopathy palpable Lungs: Clear to auscultation, breath sounds equal bilaterally, chest non tender. Heart: S1S2, regular, negative for clicks, rubs, or JVD. Abdomen: Soft, nondistended, nontender. Negative for masses or hepatossplenmegaly. Negative for costovertebral tenderness. Ribs are tender on palpation light palpation no ecchymosis noted to her skin. Full range of motion is present. Pelvis: Stable nontender. Genitourinary: Deferred. Rectal: Deferred Extremities: Atraumatic, negative for cords or calf pain. Neurovascular unremarkable. Neuro: Awake, alert, oriented. Cranial nerves II through XII unremarkable. Cerebellum unremarkable. Motor and sensory unremarkable throughout. Exam nonfocal. Discussed with patient services are not available in this area of the state I believe the closest facility is in [facility], Perhaps there is a facility in [facility] Patient is requesting a note for work that she was here in the emergency room does not want to wait for the strep test to be completed Patient is concerned of the length of time that she has been waiting her to be seen and now may be late for work. Diagnostics: [Rapid strep] Therapeutics: [] Impression: [Rib pain UTI ] Plan: [Discharged to home WITH your PCP tomorrow] Definitive disposition and diagnosis as appropriate pending reevaluation and review of above. Onset: Gradual Duration: Day(s): Left Abdominal Pain Score (Numeric/FACES): 10 - Related Data Allergies Allergy/AdvReac Type Severity Reaction Status Date / Time tramadol Allergy Rash Verified 10/17/17 18:05 Home Meds: Home Meds . 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: , 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) Other OB/BYN History: hemmorrhage Musculoskeletal History: Reports: None Neurological History: Reports: None Psychiatric History: Reports: Anxiety Endocrine/Metabolic History: Reports: Obesity/BMI 30+ Hematologic History: Reports: None Immunologic History: Reports: None Oncologic (Cancer) History: Reports: None Dermatologic History: Reports: None - Infectious Disease History Infectious Disease History: Reports: None - Past Surgical History Head Surgeries/Procedures: Reports: None Female Surgical History: Reports: D&C Social & Family History - Family History Family Medical History: Noncontributory Other Cardiac Family History: cardiovascular disease OBGYN: Reports: - Tobacco Use Smoking Status *Q: Current Every Day Smoker Years of Tobacco use: 10 Packs/Tins Daily: 0.2 Used Tobacco, but Quit: Yes Month Tobacco Last Used: 3 weeks ago Second Hand Smoke Exposure: No - Caffeine Use Caffeine Use: Reports: None - Alcohol Use Days Per Week of Alcohol Use: 0 - Recreational Drug Use Recreational Drug Use: No Recreational Drug Type: Reports: Marijuana/Hashish (Prior to ) ED ROS GENERAL - Review of Systems Review Of Systems: ROS reveals no pertinent complaints other than HPI. ED EXAM, GI/ABD - Physical Exam Exam: See Below (See dictation) Course - Vital Signs Last Recorded V/S: Last Vital Signs Temp 35.9 C 10/17/17 18:06 Pulse 80 10/17/17 18:06 Resp 12 10/17/17 18:06 BP 127/65 10/17/17 18:06 Pulse Ox 100 10/17/17 18:06 - Orders/Labs/Meds Orders: Active Orders 24 hr Category Date Time Status STREP SCRN A RAPID W CULT CONF [RM] Stat Lab 10/17/17 18:54 Received Departure - Departure Time of Disposition: 19:05 Disposition: Home, Self-Care 01 Condition: Good Clinical Impression: Rib pain on left side - Discharge Information Referrals: PCP,None [Primary Care Provider] - Forms: ED Department Discharge Additional Instructions: The following information is given to patients seen in the emergency department who are being discharged to home. This information is to outline your options for follow-up care. We provide all patients seen in our emergency department with a follow-up referral. The need for follow-up, as well as the timing and circumstances, are variable depending upon the specifics of your emergency department visit. If you don't have a primary care physician on staff, we will provide you with a referral. We always advise you to contact your personal physician following an emergency department visit to inform them of the circumstance of the visit and for follow-up with them and/or the need for any referrals to a consulting specialist. The emergency department will also refer you to a specialist when appropriate. This referral assures that you have the opportunity for followup care with a specialist. All of these measure are taken in an effort to provide you with optimal care, which includes your followup. Under all circumstances we always encourage you to contact your private physician who remains a resource for coordinating your care. When calling for followup care, please make the office aware that this follow-up is from your recent emergency room visit. If for any reason you are refused follow-up, please contact the [facility] emergency department at and asked to speak to the emergency department charge nurse. No prescriptions will be given to you at this time take Tylenol for discomfort - My Orders Last 24 Hours: My Active Orders 10/17/17 18:54 STREP SCRN A RAPID W CULT CONF [RM] Stat - Assessment/Plan Last 24 Hours: My Active Orders 10/17/17 18:54 STREP SCRN A RAPID W CULT CONF [RM] Stat
[2017-10-18 03:56] VITALS: BP 127/63
== END 2017-10-17 19:10 | disposition home or self-care (01) ==
LOC: MW.ED 16:54
DX: O99.89 Other specified diseases and conditions complicating pregnancy, childbirth and the puerperium (principal); R07.81 Pleurodynia; O23.40 Unspecified infection of urinary tract in pregnancy, unspecified trimester; O99.330 Smoking (tobacco) complicating pregnancy, unspecified trimester; F17.210 Nicotine dependence, cigarettes, uncomplicated; Z88.5 Allergy status to narcotic agent
CPT/HCPCS: 87081; 87880; 99283

== ENCOUNTER 2018-02-18 19:28 | Emergency (ER) | payer SELFPAY ==
[2018-02-18 19:36] VITALS: BP 126/82
--- NOTE | 2018-02-18 19:38 | EDM.PDOC ---
ED HPI GENERAL MEDICAL PROBLEM - General Chief Complaint: General Stated Complaint: MEDICAL CLEARANCE Time Seen by Provider: 02/18/18 19:35 - History of Present Illness INITIAL COMMENTS - FREE TEXT/NARRATIVE: HISTORY AND PHYSICAL: History of present illness: Patient 22-year-old white female presents in custody of law enforcement for medical clearance has no complaints Review of systems: As per history of present illness and below otherwise all systems reviewed and negative. Past medical history: As per history of present illness and as reviewed below otherwise noncontributory. Surgical history: As per history of present illness and as reviewed below otherwise noncontributory. Social history: No reported history of drug or alcohol abuse. Family history: As per history of present illness and as reviewed below otherwise noncontributory. Physical exam: HEENT: Atraumatic, normocephalic, pupils reactive, negative for conjunctival pallor or scleral icterus, mucous membranes moist, throat clear, neck supple, nontender, trachea midline. Lungs: Clear to auscultation, breath sounds equal bilaterally, chest nontender. Heart: S1S2, regular, negative for clicks, rubs, or JVD. Abdomen: Soft, nondistended, nontender. Negative for masses or hepatosplenomegaly. Negative for costovertebral tenderness. Pelvis: Stable nontender. Genitourinary: Deferred. Rectal: Deferred. Extremities: Atraumatic, negative for cords or calf pain. Neurovascular unremarkable. Neuro: Awake, alert, oriented. Cranial nerves II through XII unremarkable. Cerebellum unremarkable. Motor and sensory unremarkable throughout. Exam nonfocal. Diagnostics: None Therapeutics: None Impression: #1 medically clear for incarceration Definitive disposition and diagnosis as appropriate pending reevaluation and review of above. - Related Data Allergies Allergy/AdvReac Type Severity Reaction Status Date / Time tramadol Allergy Rash Verified 02/18/18 19:30 Home Meds: Home Meds . 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) Other OB/BYN History: hemmorrhage Musculoskeletal History: Reports: None Neurological History: Reports: None Psychiatric History: Reports: Anxiety Endocrine/Metabolic History: Reports: Obesity/BMI 30+ Hematologic History: Reports: None Immunologic History: Reports: None Oncologic (Cancer) History: Reports: None Dermatologic History: Reports: None - Infectious Disease History Infectious Disease History: Reports: None - Past Surgical History Head Surgeries/Procedures: Reports: None Female Surgical History: Reports: D&C Social & Family History - Family History Family Medical History: Noncontributory Other Cardiac Family History: cardiovascular disease OBGYN: Reports: - Tobacco Use Smoking Status *Q: Current Every Day Smoker Years of Tobacco use: 10 Packs/Tins Daily: 0.2 Used Tobacco, but Quit: Yes Month/Year Tobacco Last Used: 3 weeks ago Second Hand Smoke Exposure: No - Caffeine Use Caffeine Use: Reports: None - Alcohol Use Days Per Week of Alcohol Use: 0 - Recreational Drug Use Recreational Drug Use: No Recreational Drug Type: Reports: Marijuana/Hashish (Prior to ) ED ROS GENERAL - Review of Systems Review Of Systems: ROS reveals no pertinent complaints other than HPI. ED EXAM, GENERAL - Physical Exam Exam: See Below (See dictation) Course - Vital Signs Last Recorded V/S: Last Vital Signs Temp 36.4 C 02/18/18 19:31 Pulse 105 H 02/18/18 19:31 Resp 18 02/18/18 19:31 BP 126/82 02/18/18 19:31 Pulse Ox 95 02/18/18 19:31 Departure - Departure Time of Disposition: 19:37 Disposition: Home, Self-Care 01 Preliminary Cause of *Q: Sepsis & Multi System Organ Failure Clinical Impression: Medical clearance for incarceration - Discharge Information Referrals: PCP,None [Primary Care Provider] - Additional Instructions: The following information is given to patients seen in the emergency department who are being discharged to home. This information is to outline your options for follow-up care. We provide all patients seen in our emergency department with a follow-up referral. The need for follow-up, as well as the timing and circumstances, are variable depending upon the specifics of your emergency department visit. If you don't have a primary care physician on staff, we will provide you with a referral. We always advise you to contact your personal physician following an emergency department visit to inform them of the circumstance of the visit and for follow-up with them and/or the need for any referrals to a consulting specialist. The emergency department will also refer you to a specialist when appropriate. This referral assures that you have the opportunity for followup care with a specialist. All of these measure are taken in an effort to provide you with optimal care, which includes your followup. Under all circumstances we always encourage you to contact your private physician who remains a resource for coordinating your care. When calling for followup care, please make the office aware that this follow-up is from your recent emergency room visit. If for any reason you are refused follow-up, please contact the [facility] emergency department at and asked to speak to the emergency department charge nurse. Follow-up primary medical doctor as needed as discussed and return as needed as discussed
== END 2018-02-18 19:47 | disposition home or self-care (01) ==
LOC: MW.ED 19:28
DX: Z02.89 Encounter for other administrative examinations (principal); F17.210 Nicotine dependence, cigarettes, uncomplicated; Z88.5 Allergy status to narcotic agent
CPT/HCPCS: 99282